=== PATIENT | female | born 1935 | race Caucasian/White ===

== ENCOUNTER 2018-03-24 22:59 | Emergency (ER) | payer OTHER ==
[~2018-03-24] VITALS: Ht 165.1 cm; Wt 62.1 kg
[~2018-03-24 22:59] MED LIST: ALLOPURINOL100 MG PO; AMLODIPINE BESY10 MG PO; ASPIRIN EC325 MG PO; ATENOLOL50 MG PO; DIOVAN HCT 31 TABLE1 PO; METFORMIN HCL500 MG PO; TRAMADOL HCL50 MG PO
[2018-03-24 23:57] LABS: BASOPHIL (%) 0.4 % (0-1); BASOPHIL COUNT 0.1 K/uL (0-0.1); EOSINOPHIL (%) 0 % (0-5); HEMATOCRIT 32.8 % (36.0-46.0); HEMOGLOBIN 11.6 G/DL (11.9-15.5); IMMATURE GRANULOCYTE (%) 0.6 % (0.0-0.7); LYMPHOCYTE (%) 19.7 % (15-42); LYMPHOCYTE COUNT 2.8 K/uL (1.0-2.8); MCH 29.1 PG (29.0-34.0); MCHC 35.4 G/DL (30.0-36.0); MCV 82.2 FL (83-99); MONOCYTE (%) 12.8 % (3-12); MONOCYTE COUNT 1.8 K/uL (0-0.8); NEUTROPHIL (%) 66.5 % (45-76); NEUTROPHIL COUNT 9.5 K/uL (1.8-6.4); PLATELET COUNT 214 K/uL (156-360); RBC DIS.WIDTH-CV 12.3 % (11.8-14.6); RBC DIS.WIDTH-SD 37.5 % (39-53); RED BLOOD COUNT 3.99 M/uL (3.80-5.20); WHITE BLOOD COUNT 14.3 K/uL (4.1-10.2)
[2018-03-25 00:09] LABS: ALBUMIN 3.7 g/dL (3.2-4.8); CHLORIDE 101 mEq/L (99-109); MAGNESIUM 1.4 mg/dL (1.3-2.7); POTASSIUM 2.7 mEq/L (3.7-5.4); SODIUM 136 mEq/L (136-147)
[2018-03-25 00:11] LABS: GLUCOSE 135 mg/dL (70-99); TOTAL PROTEIN 6.5 g/dL (6.4-8.3)
[2018-03-25 00:13] LABS: TOTAL BILIRUBIN 1.3 mg/dL (0.0-1.0)
[2018-03-25 00:15] LABS: ALKALINE PHOSPHATASE 55 IU/L (3-129); CREATININE 0.9 mg/dL (0.6-1.3); GFR ESTIMATE (CALCULATED) > 59 mL/min/
[2018-03-25 00:16] LABS: AST (GOT) 18 IU/L (2-34); UREA NITROGEN (BUN) 20 mg/dL (9-23)
[2018-03-25 00:18] LABS: ALT (GPT) 13 IU/L (3-49)
[2018-03-25 00:25] LABS: TROP-I INTERPRETATION NEGATIVE; TROPONIN-I < 0.01 ng/mL (0.0-0.30)
[2018-03-25 02:28] LABS: APPEARANCE HAZY ((CLEAR)); COLOR YELLOW ((YELLOW))
[2018-03-25 02:29] LABS: GLUCOSE (STRIP) NEGATIVE; KETONES TRACE; LEUKOCYTES MODERATE; NITRITE NEGATIVE; PH, URINE 5 (5-8); PROTEIN (STRIP) 30; SPECIFIC GRAVITY 1.015 (1.000-1.030)
[2018-03-25 02:30] LABS: BILIRUBIN NEGATIVE; BLOOD MODERATE; UROBILINOGEN 0.2 MG/DL (0.2-1.0)
[2018-03-25 02:33] LABS: BACTERIA 2+ /HPF; EPITHELIAL CELLS 1+ /HPF; MUCUS 2+ /LPF; RED BLOOD CELLS 0-5 /HPF (0-5); UCUL ADDED? YES
[2018-03-25] MEDS ORDERED: MACROBID100 MG PO (03:05)
[2018-03-25 03:33] VITALS: BP 122/111
== END 2018-03-25 03:33 | disposition home or self-care (01) ==
LOC: EME 22:59
PROVIDERS: Emergency Medicine
DX: N39.0 Urinary tract infection, site not specified (principal); M79.641 Pain in right hand; E87.6 Hypokalemia; W19.XXXA Unspecified fall, initial encounter; E11.9 Type 2 diabetes mellitus without complications; Z79.84 Long term (current) use of oral hypoglycemic drugs; Z79.82 Long term (current) use of aspirin; I10 Essential (primary) hypertension; Z96.659 Presence of unspecified artificial knee joint; Z96.649 Presence of unspecified artificial hip joint; M10.9 Gout, unspecified
CPT/HCPCS: 70450; 73110; 73130; 80053; 81003; 83735; 84484; 85025; 87086; 93005; 99281; 99284

== ENCOUNTER 2018-05-14 19:30 | Inpatient (IN) | payer OTHER ==
[~2018-05-14] VITALS: Ht 162.6 cm; Wt 90.3 kg
[~2018-05-14 19:30] MED LIST changes: +MACROBID100 MG PO
[2018-05-14 21:09] LABS: BASOPHIL (%) 0.5 % (0-1); BASOPHIL COUNT 0.1 K/uL (0-0.1); EOSINOPHIL (%) 0.1 % (0-5); HEMOGLOBIN 13.4 G/DL (11.9-15.5); IMMATURE GRANULOCYTE (%) 0.8 % (0.0-0.7); LYMPHOCYTE (%) 7.6 % (15-42); LYMPHOCYTE COUNT 1.3 K/uL (1.0-2.8); MCH 29.1 PG (29.0-34.0); MCHC 35.3 G/DL (30.0-36.0); MCV 82.6 FL (83-99); MONOCYTE (%) 5.8 % (3-12); NEUTROPHIL (%) 85.2 % (45-76); NEUTROPHIL COUNT 14.3 K/uL (1.8-6.4); PLATELET COUNT 264 K/uL (156-360); RBC DIS.WIDTH-CV 12.1 % (11.8-14.6); RBC DIS.WIDTH-SD 36.5 % (39-53); WHITE BLOOD COUNT 16.8 K/uL (4.1-10.2)
[2018-05-14 21:14] LABS: INTER. NORMALIZED RATIO 1.1
[2018-05-14 21:38] LABS: ALBUMIN 4.2 G/DL (3.2-4.8); ALKALINE PHOSPHATASE 48 IU/L (3-129); ALT (GPT) 25 IU/L (3-49); AST (GOT) 47 IU/L (2-34); CHLORIDE 103 MEQ/L (99-109); CREATININE 0.9 MG/DL (0.6-1.3); GFR ESTIMATE (CALCULATED) > 59 mL/min/; GLUCOSE 193 mg/dL (70-99); POTASSIUM 3.5 MEQ/L (3.7-5.4); SODIUM 138 MEQ/L (136-147); TOTAL BILIRUBIN 1.2 MG/DL (0.0-1.0); TOTAL PROTEIN 6.9 G/DL (6.4-8.3); TROP-I INTERPRETATION NEGATIVE; TROPONIN-I < 0.01 ng/mL (0.0-0.30); UREA NITROGEN (BUN) 28 mg/dL (9-23)
[2018-05-14 22:10] LABS: CREATINE KINASE 1220 IU/L (1-294)
[2018-05-14 22:45] LABS: APPEARANCE CLEAR ((CLEAR)); BILIRUBIN NEGATIVE; BLOOD MODERATE; COLOR YELLOW ((YELLOW)); GLUCOSE (STRIP) 150; KETONES 20; LEUKOCYTES NEGATIVE; NITRITE NEGATIVE; PROTEIN (STRIP) NEGATIVE; SPECIFIC GRAVITY 1.015 (1.000-1.030); UROBILINOGEN 0.2 MG/DL (0.2-1.0)
[2018-05-14] MEDS ORDERED: IMODIUM A-D2 M2 PO (23:15)
[2018-05-14] MEDS ORDERED: LIPITOR20 MG PO (23:15)
[2018-05-14] MEDS ORDERED: COZAAR100 MG PO (23:16)
[2018-05-14] MEDS ORDERED: K-DUR10 MEQ PO (23:16)
[2018-05-14] MEDS ORDERED: LEXAPRO10 MG PO (23:17)
[2018-05-14 23:19] LABS: BACTERIA NONE SEEN /HPF; EPITHELIAL CELLS NONE SEEN /HPF; HYALINE CASTS 0-5 /LPF; MUCUS TRACE /LPF; RED BLOOD CELLS 0-5 /HPF (0-5); WHITE BLOOD CELLS NONE SEEN /HPF (0-5)
[2018-05-15] VITALS (8 sets, daily range): BP systolic 109–149; BP diastolic 56–76
[2018-05-15 07:05] LABS: TROP-I INTERPRETATION NEGATIVE; TROPONIN-I 0.01 ng/mL (0.0-0.30)
[2018-05-15 08:10] LABS: ALBUMIN 3.8 G/DL (3.2-4.8); ALKALINE PHOSPHATASE 41 IU/L (3-129); ALT (GPT) 23 IU/L (3-49); AST (GOT) 43 IU/L (2-34); CHLORIDE 107 MEQ/L (99-109); CREATINE KINASE 878 IU/L (1-294); CREATININE 0.8 MG/DL (0.6-1.3); GFR ESTIMATE (CALCULATED) > 59 mL/min/; POTASSIUM 3.2 MEQ/L (3.7-5.4); SODIUM 142 MEQ/L (136-147); TOTAL BILIRUBIN 1.1 MG/DL (0.0-1.0); TOTAL PROTEIN 6.3 G/DL (6.4-8.3); UREA NITROGEN (BUN) 22 mg/dL (9-23)
[2018-05-15 08:11] LABS: GLUCOSE 100 mg/dL (70-99)
[2018-05-15 12:19] LABS: TROP-I INTERPRETATION NEGATIVE; TROPONIN-I < 0.01 ng/mL (0.0-0.30)
[2018-05-15 18:27] LABS: HEMATOCRIT 34.6 % (36.0-46.0); MCH 28.8 PG (29.0-34.0); MCHC 34.7 G/DL (30.0-36.0); MCV 83.2 FL (83-99); PLATELET COUNT 255 K/uL (156-360); RBC DIS.WIDTH-CV 12.6 % (11.8-14.6); RBC DIS.WIDTH-SD 37.9 % (39-53); RED BLOOD COUNT 4.16 M/uL (3.80-5.20)
[2018-05-16 05:16] VITALS: BP 128/58
[2018-05-16 07:42] LABS: HEMATOCRIT 34.2 % (36.0-46.0); HEMOGLOBIN 11.6 G/DL (11.9-15.5); MCH 28.3 PG (29.0-34.0); MCHC 33.9 G/DL (30.0-36.0); MCV 83.4 FL (83-99); PLATELET COUNT 237 K/uL (156-360); RBC DIS.WIDTH-CV 12.6 % (11.8-14.6); WHITE BLOOD COUNT 11.7 K/uL (4.1-10.2)
[2018-05-16 08:08] LABS: ALBUMIN 3.8 G/DL (3.2-4.8); ALKALINE PHOSPHATASE 39 IU/L (3-129); ALT (GPT) 23 IU/L (3-49); AST (GOT) 34 IU/L (2-34); CHLORIDE 106 MEQ/L (99-109); CREATINE KINASE 407 IU/L (1-294); CREATININE 0.8 MG/DL (0.6-1.3); GFR ESTIMATE (CALCULATED) > 59 mL/min/; GLUCOSE 115 mg/dL (70-99); POTASSIUM 2.9 MEQ/L (3.7-5.4); SODIUM 141 MEQ/L (136-147); TOTAL PROTEIN 6.3 G/DL (6.4-8.3); UREA NITROGEN (BUN) 16 mg/dL (9-23)
[2018-05-16 08:09] LABS: TOTAL BILIRUBIN 0.8 MG/DL (0.0-1.0)
[2018-05-16 08:28] VITALS: BP 150/67
[2018-05-16 08:35] LABS: MAGNESIUM 1.4 mg/dl (1.3-2.7)
[2018-05-16 11:48] VITALS: BP 113/64
[2018-05-16 16:29] VITALS: BP 139/60; BP 139/600
[2018-05-16 19:52] LABS: APPEARANCE CLEAR ((CLEAR)); BILIRUBIN NEGATIVE; BLOOD NEGATIVE; COLOR YELLOW ((YELLOW)); GLUCOSE (STRIP) NEGATIVE; KETONES NEGATIVE; LEUKOCYTES SMALL; NITRITE NEGATIVE; PROTEIN (STRIP) NEGATIVE; SPECIFIC GRAVITY 1.012 (1.000-1.030); UROBILINOGEN 0.2 MG/DL (0.2-1.0)
[2018-05-16 19:54] LABS: BACTERIA NONE SEEN /HPF; EPITHELIAL CELLS RARE /HPF; MUCUS NONE SEEN /LPF; RED BLOOD CELLS 0-5 /HPF (0-5); UCUL ADDED? NO; WHITE BLOOD CELLS 0-5 /HPF (0-5)
[2018-05-16 21:00] VITALS: BP 132/78
[2018-05-16 23:08] VITALS: BP 138/65
[2018-05-17] VITALS (7 sets, daily range): BP systolic 125–142; BP diastolic 62–97
[2018-05-17 11:17] LABS: HEMATOCRIT 34.3 % (36.0-46.0); HEMOGLOBIN 11.7 G/DL (11.9-15.5); MCH 28.3 PG (29.0-34.0); MCHC 34.1 G/DL (30.0-36.0); MCV 83.1 FL (83-99); PLATELET COUNT 250 K/uL (156-360); RBC DIS.WIDTH-CV 12.5 % (11.8-14.6); RED BLOOD COUNT 4.13 M/uL (3.80-5.20); WHITE BLOOD COUNT 10.9 K/uL (4.1-10.2)
[2018-05-17 12:47] LABS: CHLORIDE 105 MEQ/L (99-109); CREATININE 0.8 MG/DL (0.6-1.3); GFR ESTIMATE (CALCULATED) > 59 mL/min/; MAGNESIUM 1.6 mg/dl (1.3-2.7); SODIUM 141 MEQ/L (136-147); UREA NITROGEN (BUN) 12 mg/dL (9-23)
[2018-05-17 12:48] LABS: GLUCOSE 189 mg/dL (70-99); POTASSIUM 3.6 MEQ/L (3.7-5.4)
[2018-05-17 14:32] LABS: CREATINE KINASE 279 IU/L (1-294)
[2018-05-18 02:40] VITALS: BP 123/65
[2018-05-18 02:51] VITALS: BP 123/65
[2018-05-18 07:13] VITALS: BP 136/61
[2018-05-18 12:00] VITALS: BP 114/66
[2018-05-18 19:56] VITALS: BP 106/59
[2018-05-18 23:32] VITALS: BP 140/69
[2018-05-19 05:00] VITALS: BP 138/79
[2018-05-19 06:03] LABS: BASOPHIL (%) 0.9 % (0-1); BASOPHIL COUNT 0.1 K/uL (0-0.1); EOSINOPHIL (%) 1.8 % (0-5); EOSINOPHIL COUNT 0.2 K/uL (0-0.3); HEMATOCRIT 33.2 % (36.0-46.0); HEMOGLOBIN 11.1 G/DL (11.9-15.5); IMMATURE GRANULOCYTE (%) 0.5 % (0.0-0.7); LYMPHOCYTE (%) 37.6 % (15-42); LYMPHOCYTE COUNT 4.2 K/uL (1.0-2.8); MCHC 33.4 G/DL (30.0-36.0); MCV 83.8 FL (83-99); MONOCYTE (%) 7.1 % (3-12); MONOCYTE COUNT 0.8 K/uL (0-0.8); NEUTROPHIL (%) 52.1 % (45-76); NEUTROPHIL COUNT 5.8 K/uL (1.8-6.4); PLATELET COUNT 262 K/uL (156-360); RBC DIS.WIDTH-CV 12.6 % (11.8-14.6); RBC DIS.WIDTH-SD 38.1 % (39-53); RED BLOOD COUNT 3.96 M/uL (3.80-5.20); WHITE BLOOD COUNT 11.1 K/uL (4.1-10.2)
[2018-05-19 06:42] LABS: CHLORIDE 106 MEQ/L (99-109); GFR ESTIMATE (CALCULATED) 57 mL/min/; GLUCOSE 122 mg/dL (70-99); POTASSIUM 3.6 MEQ/L (3.7-5.4); SODIUM 141 MEQ/L (136-147)
[2018-05-19 06:50] LABS: UREA NITROGEN (BUN) 25 mg/dL (9-23)
[2018-05-19 07:50] VITALS: BP 125/77
[2018-05-19 11:35] VITALS: BP 130/68
[2018-05-19 15:57] VITALS: BP 138/66
== END 2018-05-19 18:23 | DRG 500 ==
LOC: EME → EDBD 19:30 → 3EAST 23:14 → EDOF 23:14 → 4EAST 23:14 → ENRESERV 23:20 → 3EAST 05-15 00:58 → ENRESERV 05-18 02:01 → 4EAST 05-18 02:23 → ENPENDDIS 05-19 → 4EAST 05-19 18:23
PROVIDERS: Emergency Medicine; Hospitalist; Internal Medicine; Physician Assistant; Physician Assistant Medical
PROC: 0KQ13ZZ Repair Facial Muscle, Percutaneous Approach (ICD-10-PCS; principal; 2018-05-14)
DX: T79.6XXA Traumatic ischemia of muscle, initial encounter (principal); Z66 Do not resuscitate; G93.41 Metabolic encephalopathy; E86.0 Dehydration; E87.6 Hypokalemia; S01.01XA Laceration without foreign body of scalp, initial encounter; D72.828 Other elevated white blood cell count; E11.9 Type 2 diabetes mellitus without complications; I10 Essential (primary) hypertension; F03.90 Unspecified dementia, unspecified severity, without behavioral disturbance, psychotic disturbance, mood disturbance, and anxiety; R29.6 Repeated falls; M10.9 Gout, unspecified; Z96.659 Presence of unspecified artificial knee joint; Z96.643 Presence of artificial hip joint, bilateral; W18.30XA Fall on same level, unspecified, initial encounter; R41.0 Disorientation, unspecified; Z90.710 Acquired absence of both cervix and uterus; Z91.81 History of falling; Z79.82 Long term (current) use of aspirin
CPT/HCPCS: 70450; 71045; 72070; 72125; 72131; 72146; 73502; 80048; 80053; 81003; 82550; 82948; 83605; 83735; 84484; 85025; 85027; 85610; 87040; 93005; 93306; 94799; 97530 GP; 99281; 99285; A6214; J0696; J1644; J3475; J7030